=== PATIENT | male | born 1995 | race African-American/Black ===

== ENCOUNTER 2023-02-04 17:40 | Emergency (ER) | payer MEDICAID ==
[~2023-02-04] VITALS: Ht 172.7 cm; Wt 72.0 kg
[2023-02-04] MEDS ORDERED: PREDNISONE 20MG TABLET PO ONE (18:45)
[2023-02-04] MEDS ORDERED: IPRATROPIUM/ALBUTEROL 0.5-3(2.5)MG/3ML NEB HHN ONE (18:45)
[2023-02-04 19:01] LABS: BASOPHILS % 0.2 % (0.0-2.0); EOSINOPHILS % 0.2 % (0.0-5.0); HEMATOCRIT. 42.7 % (42.0-52.0); HEMOGLOBIN. 14.8 g/dL (14.0-18.0); LYMPHOCYTES % 14.3 % (20.0-50.0); MEAN CORPUSCULAR HEMOGLOBIN 30.7 pg (28.0-32.0); MEAN CORPUSCULAR VOLUME 88.7 fL (80.0-94.0); MEAN PLATELET VOLUME 8.7 fl (7.4-10.4); MONOCYTES % 8.7 % (2.0-8.0); NEUTROPHILS % 76.6 % (40.0-76.0); PLATELET 234 x1000/uL (130-400); RED BLOOD CELL COUNT 4.82 mill/uL (4.7-6.1); RED CELL DISTRIBUTION WIDTH 12.5 % (11.6-14.6)
[2023-02-04 19:11] LABS: CHLORIDE 104 mEq/L (98-107)
[2023-02-04] MEDS ORDERED: AMOXICILLIN/POTASSIUM CLAVULANATE 875/125MG TAB PO ONE (19:15)
[2023-02-04] MEDS ORDERED: AZITHROMYCIN 500 MG TABLET PO ONE (19:15)
[2023-02-04] MEDS ORDERED: AMOX1TAB16 MT (19:26)
[2023-02-04] MEDS ORDERED: AZIT500T8 MT (19:26)
[2023-02-04] MEDS ORDERED: P50 MT (19:26)
[2023-02-04] MEDS ORDERED: ALBU6.7H3 INH (19:26)
[2023-02-04] MEDS ORDERED: ALBU05 NEB (19:26)
[2023-02-04 19:54] VITALS: BP 127/66
== END 2023-02-04 20:02 | disposition home or self-care (01) ==
LOC: ER 17:40
DX: J18.9 Pneumonia, unspecified organism (principal); J45.901 Unspecified asthma with (acute) exacerbation; F12.10 Cannabis abuse, uncomplicated; Z79.899 Other long term (current) drug therapy
CPT/HCPCS: 36415; 71045; 80053; 83690; 85025; 93005; 94640; 99285; Z7610; J7512

== ENCOUNTER 2023-11-09 19:50 | Emergency (ER) | payer SELFPAY ==
[~2023-11-09] VITALS: Ht 167.6 cm; Wt 64.0 kg
[~2023-11-09 19:50] MED LIST: ALBU05 NEB; ALBU6.7H3 INH; AMOX1TAB16 MT; AZIT500T8 MT; P50 MT
[2023-11-09 20:07] VITALS: O2SAT 96
[2023-11-09] MEDS: IBUPROFEN 600MG TABLET PO ONE (21:05)
[2023-11-09] MEDS ORDERED: NAPR-1176 MT (21:39)
[2023-11-09] MEDS ORDERED: LIDO700A15 TP (21:39)
[2023-11-09 21:55] VITALS: BP 118/70; PULSE 84; RESP 16; TEMP 97.9
== END 2023-11-09 21:56 | disposition home or self-care (01) ==
LOC: ER 19:50
DX: S40.012A Contusion of left shoulder, initial encounter (principal); F12.90 Cannabis use, unspecified, uncomplicated; J45.909 Unspecified asthma, uncomplicated; W18.39XA Other fall on same level, initial encounter; Y93.89 Activity, other specified; Y92.89 Other specified places as the place of occurrence of the external cause; Y99.8 Other external cause status
CPT/HCPCS: 73030; 99283